=== PATIENT | male | born 1940 | race Caucasian/White ===

== ENCOUNTER 2018-01-07 03:22 | Emergency (ER) | payer OTHER, MEDICAID ==
[~2018-01-07] VITALS: Ht 177.8 cm; Wt 78.0 kg
[2018-01-07 03:27] VITALS: Ht 177.8 cm; Wt 78.0 kg
[2018-01-07 08:19] VITALS: BP 139/75
== END 2018-01-07 08:19 ==
LOC: ED 03:22
DX: S01.111A Laceration without foreign body of right eyelid and periocular area, initial encounter (principal); S63.502A Unspecified sprain of left wrist, initial encounter; F31.9 Bipolar disorder, unspecified; Z88.0 Allergy status to penicillin; Z88.5 Allergy status to narcotic agent; Z85.46 Personal history of malignant neoplasm of prostate; W18.39XA Other fall on same level, initial encounter; Y93.89 Activity, other specified; Y92.89 Other specified places as the place of occurrence of the external cause; Y99.8 Other external cause status
CPT/HCPCS: 90715; A4570; J2001; Q0092